=== PATIENT | male | born 1970 | race Caucasian/White ===

== ENCOUNTER → 2016-10-30 | Outpatient (CLI) | payer BC ==
--- NOTE | 2016-10-30 13:09 | KCIC ---
CT chest without contrast Indication: Lung nodule, follow-up. Axial imaging through the chest was performed without contrast. PQRS STATEMENT One or more of the following individualized dose reduction techniques were utilized for this study: 1.Automated exposure control. 2.Adjustment of the mA and/orkVaccording to patient size. 3.Use of iterative reconstruction technique. Comparison is made with prior CT chest from 05/21/2016. No axillary, hilar or mediastinal lymphadenopathy is detected. No pericardial or pleural fluid is identified. Previously noted nodularity with ground-glass opacities in left upper lobe remain present but the irregular nodule along the left anterolateral chest wall does appear to be smaller in size, now measuring approximately 1.3 centimeters compared with 1.8 centimeters on prior. There is minimal residual infiltrate and nodularity at the left major fissure but also improved. The left perihilar nodule has significantly reduced in size, now 7 millimeters compared with 1.2 centimeters. A nodule in the anterior portion of the right middle lobe appears stable, image 115. Impression: Improved appearance to the chest when compared with prior exam from 05/21/2016. Nodular opacities in the left upper lobe have significantly improved but do persist. Continued follow-up to confirm clearing is recommended with repeat CT chest in approximately 6 months. Electronically signed by: Jovon Carvajal MD (October 30, 2016 13:08:31)
== END | disposition home or self-care (01) ==
LOC: KCIC CT 12:03
PROVIDERS: ATTEND Internal Medicine Pulmonary Disease
DX: R91.1 Solitary pulmonary nodule (principal)
CPT/HCPCS: 71250

== ENCOUNTER → 2017-05-25 | Outpatient (CLI) | payer BC ==
--- NOTE | 2017-05-25 11:18 | KCIC ---
CT CHEST WO CONTRAST dated 05/25/2017 10:30 AM Indication: Follow-up lung nodule, nonsmoker.. Comparison: 10/30/2016 Technique: Contiguous axial imaging the chest performed without the administration of intravenous contrast. One or more of the following individualized dose reduction techniques were utilized for this examination: 1. Automated exposure control 2. Adjustment of the mA and/or kV according to patient size 3. Use of iterative reconstruction technique Findings: Heart size within normal limits. No pericardial effusion. Scattered coronary artery calcifications. No mediastinal, hilar or axillary lymphadenopathy. Thyroid gland unremarkable. Central airways are patent. There is an irregular bilobed noncalcified pulmonary nodule in the left upper lobe that is similar given differences in technique, measuring up to 1.4 cm maximum transverse dimension. A nodular component over the posterior superior edge measures 6 mm versus 5 mm previously. The lesion abuts and tethers to the pleural surface, unchanged. There are a few scattered small satellite nodules, unchanged. There is a small subpleural nodule in the right upper lobe on image 76 that measures 3 mm is in size, unchanged. There is also a cluster of nodularity in the posterior aspect of the left upper lobe along the left major fissure on image 100, similar to prior exam. Noncalcified pulmonary nodule anteriorly in the right middle lobe on image 35 measures 8 mm, stable. No new parenchymal nodule or mass. No consolidation. No pleural effusion. Limited images of upper abdomen unremarkable. No significant bony abnormality. IMPRESSION: 1. Multiple noncalcified pulmonary nodules throughout both lungs, relatively stable from prior study. Continued follow-up imaging is recommended to ensure stability. 2. No new or acute findings. 3. Scattered coronary artery calcifications. Electronically signed by: Darion Celeste MD (05/25/2017 11:14 AM) [id number]
== END | disposition home or self-care (01) ==
LOC: KCIC CT 10:19
PROVIDERS: ATTEND Internal Medicine Pulmonary Disease
DX: I25.10 Atherosclerotic heart disease of native coronary artery without angina pectoris (principal); R91.1 Solitary pulmonary nodule
CPT/HCPCS: 71250